=== PATIENT | male | born 1980 | race African-American/Black ===

== ENCOUNTER 2024-11-06 15:53 | Inpatient (IN) | payer MEDICARE, MEDICAID ==
[~2024-11-06] VITALS: Ht 170.2 cm; Wt 89.8 kg
[2024-11-06 15:59] VITALS: O2SAT 100
[2024-11-06 17:00] LABS: BASOPHILS % 1.0 % (0.0-2.0); EOSINOPHILS % 2.1 % (0.0-5.0); HEMATOCRIT. 37.4 % (42.0-52.0); HEMOGLOBIN. 12.4 g/dL (14.0-18.0); LYMPHOCYTES % 18.5 % (20.0-50.0); MEAN PLATELET VOLUME 8.3 fl (7.4-10.4); MONOCYTES % 8.4 % (2.0-8.0); NEUTROPHILS % 70.0 % (40.0-76.0); PLATELET 231 x1000/uL (130-400); RED BLOOD CELL COUNT 4.22 mill/uL (4.7-6.1); RED CELL DISTRIBUTION WIDTH 14.6 % (11.6-14.6)
[2024-11-06 17:11] LABS: CREATININE 1.3 mg/dL (0.6-1.3)
[2024-11-06 17:12] LABS: ETHANOL BLOOD < 10 mg/dL (<10); UREA NITROGEN BLOOD 25 mg/dL (9-23)
[2024-11-06 17:13] LABS: ASPARTATE AMINOTRANSFERASE 72 IU/L (<34)
[2024-11-06 17:14] LABS: BILIRUBIN DIRECT 0.4 mg/dL (<=3.0); BILIRUBIN TOTAL 1.2 mg/dL (0.1-1.0); PROTEIN TOTAL 7.3 g/dL (6.0-8.3)
[2024-11-06] MEDS: KCL 10MEQ/50ML PREMIX 50 ML IV SCH (19:38)
[2024-11-06 20:20] VITALS: BP 126/72; PULSE 66; RESP 16; TEMP 36.4; O2SAT 98
[2024-11-07 02:56] VITALS: BP 126/72; PULSE 81; RESP 16; TEMP 36.3624
[2024-11-07 04:00] VITALS: BP 128/69; PULSE 71; RESP 16; TEMP 36.5; O2SAT 99
[2024-11-07 12:00] VITALS: BP 131/70; PULSE 84; RESP 16; TEMP 36.5; O2SAT 99
[2024-11-07 13:07] LABS: BASOPHILS % 0.3 % (0.0-2.0); EOSINOPHILS % 2.2 % (0.0-5.0); HEMATOCRIT. 38.8 % (42.0-52.0); HEMOGLOBIN. 12.7 g/dL (14.0-18.0); LYMPHOCYTES % 17.3 % (20.0-50.0); MEAN PLATELET VOLUME 8.4 fl (7.4-10.4); MONOCYTES % 8.4 % (2.0-8.0); NEUTROPHILS % 71.8 % (40.0-76.0); PLATELET 255 x1000/uL (130-400); RED BLOOD CELL COUNT 4.38 mill/uL (4.7-6.1); RED CELL DISTRIBUTION WIDTH 14.2 % (11.6-14.6)
[2024-11-07 13:23] LABS: CREATININE 1.0 mg/dL (0.6-1.3); UREA NITROGEN BLOOD 14 mg/dL (9-23)
[2024-11-07 13:25] LABS: ASPARTATE AMINOTRANSFERASE 57 IU/L (<34); BILIRUBIN TOTAL 0.9 mg/dL (0.1-1.0); PROTEIN TOTAL 6.9 g/dL (6.0-8.3)
[2024-11-07] MEDS ORDERED: MAGN500T2 PO (13:38)
[2024-11-07] MEDS ORDERED: ACETAMINOPHEN 325MG TABLET PO PRN (13:45)
[2024-11-07] MEDS ORDERED: ONDANSETRON HCL 4MG/2ML INJ IV PRN (13:45)
[2024-11-07] MEDS ORDERED: PANTOPRAZOLE SODIUM 40 MG/VIAL IV SCH (14:00)
[2024-11-07] MEDS: PANTOPRAZOLE 40MG DR TABLET PO SCH (15:26)
[2024-11-07] MEDS: POTASSIUM CHLORIDE 20MEQ TABLET SR PO NR (15:26)
== END 2024-11-07 19:10 | disposition left against medical advice (07) | DRG 917 ==
LOC: ER 15:53 → EDBD 15:53 → EDBEDREQ 16:33 → EDBEDREQTM 19:34 → EDBEDREQ 19:34 → ENRESERV 20:08 → 6WST 20:29
PROVIDERS: ADMIT Internal Medicine; ATTEND Internal Medicine
DX: T40.991A Poisoning by other psychodysleptics [hallucinogens], accidental (unintentional), initial encounter (principal); G92.8 Other toxic encephalopathy; G93.40 Encephalopathy, unspecified; E87.6 Hypokalemia; Z53.29 Procedure and treatment not carried out because of patient's decision for other reasons; Z91.199 Patient's noncompliance with other medical treatment and regimen due to unspecified reason; Y92.89 Other specified places as the place of occurrence of the external cause
CPT/HCPCS: 36415; 71045; 80048; 80053; 80076; 80320; 82140; 83735; 85025; 99285; J3480; G0480